=== PATIENT | female | born 2000 | race Caucasian/White ===

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

== ENCOUNTER 2018-11-29 22:46 | Emergency (ER) | payer BC ==
[2018-11-29 23:44] LABS: PLATELET COUNT 265 10^3/uL (150-400)
--- NOTE | 2018-11-30 00:10 | EDPHY ---
H & P Stated Complaint: left side CP - Personal History LMP (Females 10-55): 15-21 Days Ago Current Tetanus/Diphtheria Vaccine: Yes Current Tetanus Diphtheria and Acellular Pertussis (TDAP): Yes Tetanus Vaccine Date: 2016 - Medical/Surgical History Hx Asthma: No Hx Chronic Respiratory Disease: No Hx Diabetes: No Hx Cardiac Disease: No Hx Renal Disease: No Hx Cirrhosis: No Hx Alcoholism: No Hx HIV/AIDS: No Hx Splenectomy or Spleen Trauma: No Other PMH: denies - Social History Smoking Status: Never smoked Time Seen by Provider: 11/29/18 23:02 HPI/ROS: Chief complaint: Chest pain History of present illness: This is a 18-year-old female who presents to the emergency department for evaluation of chest pain. Patient describes a left- sided, sharp chest pain. It hurts to take a deep breath. She states she has had similar symptoms on and off for number of years. However today it has lasted much longer. She does currently have a sinus infection otherwise she denies fever or other cold symptoms including no cough. She denies trauma. She denies pain or swelling in the legs. Review of systems: A 10 point review of systems was obtained and other than described above was negative. (Sixto Ortiz) - Physical Exam Exam: General Appearance: Alert, no distress. Eyes: Pupils equal and round no pallor or injection. ENT, Mouth: Mucous membranes moist. Respiratory: There are no retractions, lungs are clear to auscultation. Cardiovascular: Regular rate and rhythm. Gastrointestinal: Abdomen is soft and non tender, no masses, bowel sounds normal. Neurological: Alert and oriented. Skin: Warm and dry, no rashes. Musculoskeletal: Tenderness to the left costosternal region. Extremities are symmetrical, full range of motion. Psychiatric: Patient is oriented X 3, there is no agitation. (Sixto Ortiz) Constitutional: Initial Vital Signs Temperature (C) 37.1 C 11/29/18 22:48 Heart Rate 90 11/29/18 22:48 Respiratory Rate 16 11/29/18 22:48 Blood Pressure 117/91 H 11/29/18 22:48 O2 Sat (%) 99 11/29/18 22:48 O2 Delivery Mode Room Air Allergies/Adverse Reactions: unknown antibiotic Allergy (Uncoded 04/29/17 21:53) Home Medications: Medication Instructions Recorded Control Pills 04/29/17 Augmentin 875 MG TAB (*) 11/29/18 Medical Decision Making ED Course/Re-evaluation: 0124AM: Patient re-evaluated this time resting comfortably. No shortness of breath, no chest pain. She reports she was rock climbing and my lab prior to this may have injured herself. She had pain which she took a deep breath in. Is no longer there. She also has some anterior chest wall pain when you press with tender palpation. Signed somewhat pleuritic. Her EKG does not show any acute ischemia. Her troponins negative, negative D-dimer. Vital signs are stable. She is doing much better and resting comfortably without chest pain or complaints. I believe this to be musculoskeletal. Chest x-ray two view reviewed I do not appreciate acute inflammatory process. No evidence of pneumothorax or pneumonia image interpreted by myself. Patient is comfortable going home. Return precautions discussed with her ( Flash Dorsey) Differential Diagnosis: Included but not limited to musculoskeletal pain, GERD, pneumothorax, PE, cardiac arrhythmias and other cardiac disturbances (Sixto Ortzi) - Data Points Laboratory Results: Laboratory Results 11/29/18 23:30 11/29/18 23:30 11/29/18 11/29/18 11/29/18 23:35 23:30 23:30 WBC RBC Hgb Hct MCV MCH MCHC RDW Plt Count MPV Neut % (Auto) Lymph % (Auto) [place] % (Auto) Eos % (Auto) Baso % (Auto) Nucleat RBC Rel Count Absolute Neuts (auto) Absolute Lymphs (auto) Absolute Monos (auto) Absolute Eos (auto) Absolute Basos (auto) Absolute Nucleated RBC Immature Gran % Immature Gran # RBC/WBC/PLT Morphology Atypical Lymphocytes Platelet Estimate D-Dimer 0.27 ug/mLFEU ug/mLFEU (0.00-0.50) Sodium 135 mEq/L mEq/L (135-145) Potassium 3.9 mEq/L mEq/L (3.5-5.2) Chloride 104 mEq/L mEq/L (97-110) Carbon Dioxide 22 mEq/l mEq/l (22-31) Anion Gap 9 mEq/L mEq/L (6-14) BUN 10 mg/dL mg/dL (7-23) Creatinine 0.7 mg/dL mg/dL (0.6-1.0) Estimated GFR > 60 Glucose 93 mg/dL mg/dL (70-100) Calcium 9.3 mg/dL mg/dL (8.5-10.4) POC Troponin I 0.00 ng/mL ng/mL (0.00-0.08) 11/29/18 23:30 WBC 8.42 10^3/uL 10^3/uL (3.80-9.50) RBC 4.25 10^6/uL 10^6/uL (4.18-5.33) Hgb 13.8 g/dL g/dL (12.6-16.3) Hct 39.2 % % (38.0-47.0) MCV 92.2 fL fL (81.5-99.8) MCH 32.5 pg pg (27.9-34.1) MCHC 35.2 g/dL g/dL (32.4-36.7) RDW 11.9 % % (11.5-15.2) Plt Count 265 10^3/uL 10^3/uL (150-400) MPV 9.2 fL fL (8.7-11.7) Neut % (Auto) 41.2 % % (39.3-74.2) Lymph % (Auto) 51.7 % H % (15.0-45.0) [place] % (Auto) 5.7 % % (4.5-13.0) Eos % (Auto) 1.1 % % (0.6-7.6) Baso % (Auto) 0.1 % L % (0.3-1.7) Nucleat RBC Rel Count 0.0 % % (0.0-0.2) Absolute Neuts (auto) 3.47 10^3/uL 10^3/uL (1.70-6.50) Absolute Lymphs (auto) 4.35 10^3/uL H 10^3/uL (1.00-3.00) Absolute Monos (auto) 0.48 10^3/uL 10^3/uL (0.30-0.80) Absolute Eos (auto) 0.09 10^3/uL 10^3/uL (0.03-0.40) Absolute Basos (auto) 0.01 10^3/uL L 10^3/uL (0.02-0.10) Absolute Nucleated RBC 0.00 10^3/uL 10^3/uL (0-0.01) Immature Gran % 0.2 % % (0.0-1.1) Immature Gran # 0.02 10^3/uL 10^3/uL (0.00-0.10) RBC/WBC/PLT Morphology TNP Atypical Lymphocytes 1+ H Platelet Estimate TNP D-Dimer Sodium Potassium Chloride Carbon Dioxide Anion Gap BUN Creatinine Estimated GFR Glucose Calcium POC Troponin I Point of Care Test Results: Chemistry 11/29/18 23:35 POC Troponin I 0.00 ng/mL ng/mL (0.00-0.08) Departure - Departure Disposition: Home, Routine, Self-Care Clinical Impression: Chest pain Qualifiers: Chest pain type: unspecified Qualified Code(s): R07.9 - Chest pain, unspecified Condition: Good Instructions: Costochondritis (ED) Additional Instructions: Please follow-up with a primary care doctor within a week for continued evaluation and care You can use ibuprofen 600 mg 3 times a day for the next 2-3 days for pain control If symptoms worsen or new symptoms develop return to the emergency department for recheck Referrals: NONE *PRIMARY CARE P,. [Primary Care Provider] - As per Instructions Patricia Maher MD [Medical Doctor] - As per Instructions
[2018-11-30 01:25] VITALS: BP 104/75
--- NOTE | 2018-11-30 08:04 | CPEKG ---
Test Reason : OPEN Blood Pressure : / mmHG Vent. Rate : 078 BPM Atrial Rate : 078 BPM P-R Int : 139 ms QRS Dur : 078 ms QT Int : 345 ms P-R-T Axes : 065 111 035 degrees QTc Int : 393 ms Sinus rhythm Left posterior fascicular block Confirmed by Flash Dorsey ([id number]) on 11/30/2018 8:03:53 AM Referred By: Flash Dorsey Confirmed By:Flash Dorsey
== END 2018-11-30 01:30 | disposition home or self-care (01) ==
DX: R07.9 Chest pain, unspecified (principal)
CPT/HCPCS: 84484-ER